=== PATIENT | male | born 2000 | race Caucasian/White ===

== ENCOUNTER 2020-05-23 13:25 | Emergency (ER) | payer OTHER ==
[~2020-05-23] VITALS: Ht 172.7 cm; Wt 52.9 kg
[2020-05-23] MEDS ORDERED: KETOROLAC 30 MG/1 ML ONE (13:59)
[2020-05-23] MEDS ORDERED: KETOROLAC 30 MG/1 ML IM ONE (14:00)
[2020-05-23 14:25] VITALS: BP 148/90
== END 2020-05-23 14:51 | disposition home or self-care (01) ==
LOC: ED 14:45
DX: S29.011A Strain of muscle and tendon of front wall of thorax, initial encounter (principal); X58.XXXA Exposure to other specified factors, initial encounter; Y93.89 Activity, other specified; Y92.89 Other specified places as the place of occurrence of the external cause; Y99.8 Other external cause status
CPT/HCPCS: 71045; 93005; 96372; 99284; J1885

== ENCOUNTER 2020-10-11 13:07 | Emergency (ER) | payer OTHER ==
[~2020-10-11] VITALS: Ht 172.7 cm; Wt 54.9 kg
--- NOTE | 2020-10-11 14:47 | NUR ---
Walked patient back to room at this time. Assumed care of pt. Pt steady upon ambulation to room and moving all extremities independently. Pt c/o shortness of breath and slight ceja. Pt able to speak in full 15-18 word sentences w/o difficulty. 100% SPO2 on room air. Pt AO x 4. Skin pink, warm and dry. Non tender to palp on spine. Pt on cont bp, cardiac and SPO2 monitors. Call light within reach. Waiting for ERMD eval.
--- NOTE | 2020-10-11 15:30 | NUR ---
Pt currently resting on [employer]. No acute distress noted. Pt AO x 4. Skin pink, warm and dry. Resp even and unlabored. Pt aware we are waiting for ERMD eval. Pt on cont BP, Cardiac and SPO2 monitors. Call light within reach. Will cont to monitor pt.
--- NOTE | 2020-10-11 16:20 | NUR ---
PT CURRENTLY IN IMAGING.
[2020-10-11 16:53] LABS: BASOPHILS % (AUTO) 0 % (0-1); EOSINOPHILS % (AUTO) 0 % (1-7); LYMPHOCYTES % (AUTO) 7 % (22-44); MEAN CORPUSCULAR HEMOGLOBIN 31.4 pg (27.5-34.5); MEAN CORPUSCULAR HGB CONC 34.2 g/dL (33.2-36.2); MEAN PLATELET VOLUME 7.9 fL (7.4-10.4); MONOCYTES % (AUTO) 6 % (2-9); NEUTROPHILS % (AUTO) 87 % (42-75); PLATELET COUNT 256 x10^3/uL (130-400); RED BLOOD COUNT 4.97 x10^6/uL (4.38-5.82); RED CELL DISTRIBUTION WIDTH 12.5 % (9.4-14.8)
[2020-10-11 17:00] LABS: ANION GAP 7 mmol/L (5-15); CALCIUM 9.9 mg/dL (8.5-10.1); CHLORIDE 107 mmol/L (98-107)
[2020-10-11 17:10] LABS: ALANINE AMINOTRANSFERASE 33 U/L (12-78); ALKALINE PHOSPHATASE 64 U/L (45-117); BILIRUBIN,TOTAL 1.7 mg/dL (0.2-1.0); CREATINE KINASE, TOTAL 268 U/L (39-308); CREATININE 0.86 mg/dL (0.7-1.3); TOTAL PROTEIN 8.1 g/dL (6.4-8.2)
--- NOTE | 2020-10-11 17:30 | NUR ---
PT UP TO RESTROOM. URINE SAMPLE OBTAINED AND SENT TO LAB. PT REPORTS LI IMPROVING AND SOB RESOLVED. PT AO X 4. SKIN PINK, WARM AND DRY. RESP EVEN AND UNLABORED. PT ABLE TO SPEAK IN FULL 15-18 WORD SENTENCES WITHOUT DIFFICULTY. CALL LIGHT WITHIN REACH. WILL CONT TO MONITOR PT.
[2020-10-11 17:36] LABS: MD SCAN
[2020-10-11 17:57] LABS: MICROSCOPIC NOT IND
--- NOTE | 2020-10-11 19:00 | NUR ---
MIGNON PIERSON AT BEDSIDE FOR RECHECK/EXPLANATION OF RESULTS. PT VERBALIZES UNDERSTANDING. ALL QUESTIONS ANSWERED.
[2020-10-11 19:15] VITALS: BP 116/79
== END 2020-10-11 19:17 | disposition home or self-care (01) ==
LOC: ED 15:41
DX: S40.211A Abrasion of right shoulder, initial encounter (principal); S00.512A Abrasion of oral cavity, initial encounter; G40.309 Generalized idiopathic epilepsy and epileptic syndromes, not intractable, without status epilepticus; R51.9 Headache, unspecified; D72.829 Elevated white blood cell count, unspecified; F17.200 Nicotine dependence, unspecified, uncomplicated; X58.XXXA Exposure to other specified factors, initial encounter; Y93.89 Activity, other specified; Y92.89 Other specified places as the place of occurrence of the external cause; Y99.8 Other external cause status
CPT/HCPCS: 36415; 70450; 74176; 80053; 80320; 81003; 82550; 83605; 85025; 99285; G0480

== ENCOUNTER 2021-01-21 20:56 | Emergency (ER) | payer OTHER ==
[~2021-01-21] VITALS: Ht 172.7 cm; Wt 60.0 kg
[2021-01-21] MEDS ORDERED: LEVETIRACETAM 1,000 MG in SODIUM CHLORIDE 0.9% 100 ML IV ONE (21:00)
--- NOTE | 2021-01-21 21:18 | NUR ---
ELLIOT PT HAD TONIC CLONIC SEIZURE ON RETURN FLIGHT HOME FROM [facility], HAS MILD TONGUE TRAUMA. PT PLACED ON ALL MONITORS, SEIZURE PRECAUTIONS IN PLACE. CALL LIGHT WITHIN REACH.
--- NOTE | 2021-01-21 21:28 | NUR ---
PT AMULATED TO RESTROOM.
[2021-01-21 21:42] LABS: ALBUMIN 4.9 g/dL (3.4-5.0); ANION GAP 13 mmol/L (5-15); CALCIUM 9.9 mg/dL (8.5-10.1); CHLORIDE 105 mmol/L (98-107)
[2021-01-21 21:43] LABS: MEAN CORPUSCULAR HEMOGLOBIN 31.8 pg (27.5-34.5); MEAN PLATELET VOLUME 7.9 fL (7.4-10.4); PLATELET COUNT 296 x10^3/uL (130-400); RED BLOOD COUNT 5.17 x10^6/uL (4.38-5.82); RED CELL DISTRIBUTION WIDTH 12.7 % (9.4-14.8)
[2021-01-21 22:16] LABS: BAND#(MANUAL) 0.61 x10^3/uL; BANDS%(MANUAL) 4 % (0-7); LYMPH#(MANUAL) 1.38 x10^3/uL (1-3.4); LYMPHS% (MANUAL) 9 % (22-44); METAMYELOCYTES# (MANUAL) 0.15 x10^3/uL (0-0); METAMYELOCYTES% (MANUAL) 1 % (0-1); MONOS#(MANUAL) 0.61 x10^3/uL (0.3-2.7); MONOS% (MANUAL) 4 % (2-9); SEG#(MANUAL) 12.55 x10^3/uL (1.8-6.8); SEGS% (MANUAL) 82 % (42-75)
[2021-01-21 22:20] LABS: <PLATELET ESTIMATE> ADEQUATE; <PLT MORPHOLOGY> NORMAL PLT MORPH; <RBC MORPHOLOGY> NORMAL; PMNS WITH VACUOLES 1+
[2021-01-21 22:40] VITALS: BP 137/86
--- NOTE | 2021-01-21 22:41 | NUR ---
DR. PURCELL AT BEDSIDE TO DISCUSS POC. VSS.
== END 2021-01-21 22:58 | disposition home or self-care (01) ==
LOC: ED 21:25
DX: G40.409 Other generalized epilepsy and epileptic syndromes, not intractable, without status epilepticus (principal)
CPT/HCPCS: 36415; 80048; 82040; 85025; 93005; 96374; 99284; J1953